=== PATIENT | female | born 1955 | race Caucasian/White ===

== ENCOUNTER 2018-12-15 15:49 | Emergency (ER) | payer OTHER ==
[2018-12-15 16:14] VITALS: BP 119/72
[2018-12-15 16:36] LABS: Influenza A Molecular NEGATIVE (Negative); Influenza B Molecular NEGATIVE (Negative)
--- NOTE | 2018-12-15 16:55 | UC ---
FLU HPI - HPI Summary HPI Summary: Pt presents with c/o sudden onset of body aches, fatigue, dark color urine with morning urine that lightens during the day. Pt admits that she does not drink much PO fluid. Pt was seen by PCP 3 weeks ago and had blood work and PE and was told "everything is good" - History of Current Complaint Chief Complaint: UCGeneralIllness Stated Complaint: URINARY/BODY ACHES Time Seen by Provider: 12/15/18 16:00 Hx Obtained From: Patient ?: No Onset/Duration: Gradual Onset, Lasting Weeks, Still Present Severity Currently: Moderate Severity Initially: Moderate Pain Intensity: 8 Associated Signs & Symptoms: Positive: Myalgia, Cough, Nasal Congestion, Vomiting Related Hx: Possible Flu/Infectious Exposure - Risk Factors Influenza Risk Factors: Negative - Allergy/Home Medications Allergies/Adverse Reactions: Allergies Allergy/AdvReac Type Severity Reaction Status Date / Time No Known Allergies Allergy Verified 12/15/18 16:08 Home Medications: Home Medications Lisinopril TAB* [Prinivil TAB 5 MG*] 1 tab DAILY 12/15/18 [History Confirmed ] PMH/Surg Hx/FS Hx/Imm Hx Previously Healthy: Yes Cardiovascular History: Hypertension - Surgical History Surgical History: Yes Surgery Procedure, Year, and Place: tubal ligation - Family History Known Family History: Negative: Cardiac Disease, Hypertension, Diabetes - Social History Occupation: Works From/At Home Lives: With Family Alcohol Use: None Substance Use Type: None Smoking Status (MU): Heavy Every Day Tobacco Smoker Type: Cigarettes Amount Used/How Often: 1 PPD Length of Time of Smoking/Using Tobacco: 43 Years Have You Smoked in the Last Year: Yes - Immunization History Most Recent Influenza Vaccination: Not the 2016/2016 Season Vaccination Up to Date: No Review of Systems All Other Systems Reviewed And Are Negative: Yes Constitutional: Positive: Chills, Fatigue Skin: Positive: Negative Eyes: Positive: Negative ENT: Positive: Negative Respiratory: Positive: Cough Cardiovascular: Positive: Negative Gastrointestinal: Positive: Negative Genitourinary: Positive: Negative Motor: Positive: Negative Neurovascular: Positive: Negative Musculoskeletal: Positive: Myalgia Neurological: Positive: Negative Psychological: Positive: Negative Is Patient Immunocompromised?: No Physical Exam Triage Information Reviewed: Yes Appearance: Other: - fatigued Vital Signs: Initial Vital Signs Temp 98.4 F 12/15/18 16:11 Pulse 113 03/22/19 16:11 Resp 16 12/15/18 16:11 BP 119/72 12/15/18 16:11 Pulse Ox 99 12/15/18 16:11 Vital Signs Reviewed: Yes Eye Exam: Normal ENT Exam: Other ENT: Positive: Nasal congestion, Other - cerumen impaction Dental Exam: Normal Dental: Positive: Other: - wears upper dentures Neck exam: Normal Respiratory Exam: Normal Cardiovascular Exam: Normal Musculoskeletal Exam: Normal Neurological Exam: Normal Psychological Exam: Normal Skin Exam: Normal Flu Course/Dx - Course Course Of Treatment: Pt requested an antibiotic. I reviewed with her my findings and stated taht I did not find a source of a bacterial infection to treat with antibiotics. I recommended that she either follow up with her PCP and/or go directly to the emergency room for further evaluation and treatment. - Differential Dx/Diagnosis Differential Diagnosis/HQI/PQRI: Influenza, Upper Respiratory Infection Provider Diagnosis: Fatigue, Impacted cerumen of both ears Discharge - Sign-Out/Discharge Documenting (check all that apply): Patient Departure All imaging exams completed and their final reports reviewed: No Studies - Discharge Plan Condition: Stable Disposition: HOME Patient Education Materials: Cerumen Impaction (ED), Musculoskeletal Pain (ED) , Fatigue (ED) Referrals: Eloina Ricardo NP [Primary Care Provider] - As Soon As Possible - Billing Disposition and Condition Condition: STABLE Disposition: Home
== END 2018-12-15 17:10 | disposition home or self-care (01) ==
LOC: UCCORT 15:49
DX: R53.83 Other fatigue (principal); H61.23 Impacted cerumen, bilateral; M79.10 Myalgia, unspecified site; R05 Cough; R09.81 Nasal congestion; R11.10 Vomiting, unspecified; R39.89 Other symptoms and signs involving the genitourinary system; F17.210 Nicotine dependence, cigarettes, uncomplicated; I10 Essential (primary) hypertension; Z79.899 Other long term (current) drug therapy
CPT/HCPCS: 81003; 99213; G0463